=== PATIENT | male | born 1985 | race African-American/Black ===

== ENCOUNTER 2017-08-14 11:54 | Emergency (ER) | payer OTHER ==
[~2017-08-14] VITALS: Ht 160 cm; Wt 65.8 kg
[2017-08-14] MEDS ORDERED: NKM (12:02)
[2017-08-14 12:13] VITALS: BP 122/73
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
[2017-08-14] MEDS ORDERED: ROBAXIN500 MG PO (12:41)
[2017-08-14] MEDS ORDERED: SOMA350 MG PO (12:41)
[2017-08-14] MEDS ORDERED: LIDODERM700 M1 TOPIC (12:42)
[2017-08-14 13:13] VITALS: BP 122/73
== END 2017-08-14 13:14 | disposition home or self-care (01) ==
LOC: EMR 12:34
DX: R20.2 Paresthesia of skin (principal); M62.830 Muscle spasm of back; M75.51 Bursitis of right shoulder; M25.511 Pain in right shoulder; M54.42 Lumbago with sciatica, left side
CPT/HCPCS: 99284